=== PATIENT | male | born 1980 | race Caucasian/White ===

== ENCOUNTER → 2024-11-30 14:09 | Outpatient (REF) | payer OTHER, SELFPAY | LOC: HWRAD 14:09 | PROVIDERS: ATTENDING PHYSICIAN Family Medicine | DX: Z87.820 Personal history of traumatic brain injury (principal); V89.2XXA Person injured in unspecified motor-vehicle accident, traffic, initial encounter; S39.012A Strain of muscle, fascia and tendon of lower back, initial encounter; S16.1XXA Strain of muscle, fascia and tendon at neck level, initial encounter; S86.911A Strain of unspecified muscle(s) and tendon(s) at lower leg level, right leg, initial encounter; S46.911A Strain of unspecified muscle, fascia and tendon at shoulder and upper arm level, right arm, initial encounter | CPT/HCPCS: 70450; 72040; 72110; 72190; 73030; 73564 ==